=== PATIENT | female | born 1965 | race Caucasian/White ===

== ENCOUNTER 2021-11-18 11:58 | Emergency (ER) | payer BC ==
[2021-11-18 12:13] VITALS: BP 119/81; PULSE 77; TEMP 98.1; BMI 30.4
[2021-11-18 14:12] LABS: BASO % 0.7 % (0-2.0); EOS % 2.5 % (0-4.5); HEMATOCRIT 43.3 % (32.4-45.2); HEMOGLOBIN 14.6 GM/dL (10.7-15.3); LYMPH % 35.6 % (8-40); MCHC 33.7 g/dl (32.0-36.0); MEAN CELL VOLUME 85.9 fl (80-96); MEAN PLT VOLUME 11.1 fl (7.5-11.1); MONO % 5.9 % (3.8-10.2); NEUT % 55.3 % (42.8-82.8); RBC 5.04 M/mm3 (3.60-5.2); RDW 12.6 % (11.6-15.6); WHITE BLOOD COUNT 2.9 K/mm3 (4.0-10.0)
[2021-11-18 14:16] LABS: INR 0.96 (0.83-1.09)
[2021-11-18 14:19] LABS: ACTIVATED PTT 26.5 SECONDS (25.2-36.5)
[2021-11-18 14:34] LABS: PLATELET COUNT 23 10^3/uL (134-434)
[2021-11-18 14:56] LABS: CHLORIDE 106 mmol/L (98-107); SODIUM 140 mmol/L (136-145)
[2021-11-18 14:57] LABS: ERYTHROCYTE SEDIMENTATION RATE 10 mm/hr (0-30)
[2021-11-18 14:58] LABS: ALBUMIN 4.5 g/dl (3.4-5.0); ANION GAP 5 MMOL/L (8-16); BLOOD UREA NITROGEN 16.6 mg/dL (7-18); CALCIUM 9.3 mg/dL (8.5-10.1); CO2 29 mmol/L (21-32); GLUCOSE,RANDOM 90 mg/dL (74-106)
[2021-11-18 15:01] LABS: URIC ACID 5.2 mg/dL (2.6-7.2)
[2021-11-18 15:02] LABS: BILIRUBIN,TOTAL 0.9 mg/dL (0.2-1); SGOT/AST 20 U/L (15-37); TOT PROT 7.6 g/dl (6.4-8.2)
[2021-11-18 15:04] LABS: ALK PHOS 93 U/L (45-117); LDH 226 U/L (84-246)
[2021-11-18 15:08] LABS: SGPT/ALT 28 U/L (13-61)
[2021-11-18] MEDS ORDERED: PANTOPRAZOLE 40 MG TABLET PO ONE (15:57)
[2021-11-18] MEDS ORDERED: DEXAMETHASONE 4 MG TABLET (FP) PO ONE (15:57)
[2021-11-18] MEDS ORDERED: DEXAMETHASONE SOD PHOSPHATE 10 MG/1 ML VIAL ONE (16:01)
[2021-11-22 13:46] LABS: HEPATITIS B SURFACE AG MATERN NON-REACTIVE (NONREACTIVE)
== END 2021-11-18 16:30 | disposition home or self-care (01) ==
LOC: JER 11:58
DX: D69.6 Thrombocytopenia, unspecified (principal); D72.819 Decreased white blood cell count, unspecified; R23.3 Spontaneous ecchymoses
CPT/HCPCS: 36415; 80053; 82607; 83615; 84439; 84443; 84550; 85025; 85384; 85610; 85651; 85730; 86038; 86140; 86704; 86705; 86707; 86850; 86900; 86901; 87340; 87350; 87389; 99283-25

== ENCOUNTER 2023-12-04 05:21 | Emergency (ER) | payer BC ==
[2023-12-04 05:28] VITALS: BMI 28.3
[2023-12-04] MEDS ORDERED: KETOROLAC TROMETHAMINE 30 MG/1 ML VIAL ONE (05:48)
[2023-12-04] MEDS ORDERED: morphine SULFATE 4 MG/ML VIAL ONE (05:48)
[2023-12-04] MEDS: KETOROLAC TROMETHAMINE 30 MG/1 ML VIAL IVPUSH ONE (06:02)
[2023-12-04] MEDS: SODIUM CHLORIDE 1,000 ML IV STA (06:02)
[2023-12-04 06:28] LABS: BASO % 0.5 % (0-2.0); EOS % 1.2 % (0-4.5); HEMATOCRIT 40.7 % (32.4-45.2); HEMOGLOBIN 13.6 GM/dL (10.7-15.3); MCH 28.8 pg (25.7-33.7); MCHC 33.5 g/dl (32.0-36.0); MEAN CELL VOLUME 86.1 fl (80-96); MEAN PLT VOLUME 8.6 fl (7.5-11.1); MONO % 6.7 % (3.8-10.2); NEUT % 64.6 % (42.8-82.8); PLATELET COUNT 198 10^3/uL (134-434); RBC 4.72 M/mm3 (3.60-5.2); WHITE BLOOD COUNT 4.4 K/mm3 (4.0-10.0)
[2023-12-04] MEDS: morphine CARPU-JECT 4 MG/1 ML DISP.SYRIN IVPUSH ONE (06:30)
[2023-12-04 07:04] LABS: POTASSIUM 3.3 mmol/L (3.5-5.1)
[2023-12-04 07:05] LABS: CALCIUM 9.5 mg/dL (8.5-10.1)
[2023-12-04 07:07] LABS: ALBUMIN 4.2 g/dl (3.4-5.0); BLOOD UREA NITROGEN 15.6 mg/dL (7-18)
[2023-12-04 07:09] LABS: CREATININE 1.2 mg/dL (0.55-1.3)
[2023-12-04] MEDS ORDERED: ACETAMINOPHEN INJECTION 100 ML IVPB ONE (07:15)
[2023-12-04] MEDS: ACETAMINOPHEN 1000 MG/100 ML BAG IVPB ONE (07:15)
[2023-12-04] MEDS: ONDANSETRON 4 MG/2 ML VIAL IVPUSH ONE (07:20)
[2023-12-04] MEDS ORDERED: ONDANSETRON 4 MG/2 ML VIAL ONE (07:22)
[2023-12-04 07:36] LABS: MAGNESIUM 2.2 mg/dL (1.8-2.4)
[2023-12-04] MEDS ORDERED: POTASSIUM CHLORIDE TABS 20 MEQ TABLET.ER (FP) PO ONE (08:40)
[2023-12-04] MEDS: POTASSIUM CHLORIDE TABS 20 MEQ TABLET.ER (FP) PO ONE (08:50)
[2023-12-04 08:54] LABS: URINE APPEARANCE Clear; URINE BILIRUBIN Negative (NEGATIVE); URINE COLOR Light yellow; URINE GLUCOSE (UA) Negative (NEGATIVE); URINE KETONE 2+ (NEGATIVE); URINE LEUK ESTERASE Negative (NEGATIVE); URINE NITRITE Negative (NEGATIVE); URINE PROTEIN Negative (NEGATIVE); URINE UROBILINOGEN 0.2 mg/dL (0.2-1.0)
[2023-12-04 09:17] VITALS: BP 113/78; PULSE 64; RESP 20; TEMP 98.3
[2023-12-04 13:39] LABS: EPI CELLS 9 /uL (0-25.1); HYALINE CASTS 0 /uL (0-3.1); URINE BACTERIA 244 /uL (0-1359); URINE RBC 7 /uL (0-23.9); URINE WBC 6 /uL (0-25.8)
== END 2023-12-04 09:38 | disposition home or self-care (01) ==
LOC: JER 05:21
PROC: 3E033NZ Introduction of Analgesics, Hypnotics, Sedatives into Peripheral Vein, Percutaneous Approach (ICD-10-PCS; principal; 2023-12-04)
PROC: 3E0333Z Introduction of Anti-inflammatory into Peripheral Vein, Percutaneous Approach (ICD-10-PCS; 2023-12-04)
PROC: 3E033GC Introduction of Other Therapeutic Substance into Peripheral Vein, Percutaneous Approach (ICD-10-PCS; 2023-12-04)
PROC: 3E0337Z Introduction of Electrolytic and Water Balance Substance into Peripheral Vein, Percutaneous Approach (ICD-10-PCS; 2023-12-04)
DX: N20.0 Calculus of kidney (principal); R11.2 Nausea with vomiting, unspecified
CPT/HCPCS: 36415; 74176-TC; 80053; 81003; 83690; 83735; 85025; 87086; 93005; 93010; 99285-25; J0131